=== PATIENT | female | born 1980 | race Caucasian/White ===

== ENCOUNTER 2018-12-07 03:51 | Emergency (ER) | payer OTHER ==
[~2018-12-07] VITALS: Ht 157.5 cm; Wt 88.5 kg
--- OUTSIDE RECORDS SUMMARY | 2018-12-07 03:57 | XMS REPORT ---
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 414.01 06 Apr, 2014 0 4737580338202 Problem Presence of cardiac and vascular implant and graft V45.00 08 May, 2014 0 729021710 Problem Hyperglycemia R73.9 Sep, 0 67916716 Problem Hyperlipidemia E78.5 Apr, 0 57915172 Problem Insomnia G47.00 Jan, 0 881392175 Problem Hyperlipidemia 272.4 Apr, 0 92856116 Problem Presence of cardiac and vascular implant and graft Z95.9 May, 0 874322520 Problem Dental examination V72.2 Active 31932360 Problem 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 [facility] [place] [address] Aug, Acute bronchitis J20.9 ; Low oxygen saturation R79.81 and Dyspnea R06.00 [facility] [address] [facility] [id number] [address] Jun, [facility] [id number] [address] Jun, [facility] [address] [address] May, [facility] [address] [address] May, [facility] [id number] [address] Apr, [facility] [id number] [place] [address] Apr, [facility] [address] [address] Sep, [facility] [id number] [place] [address] Sep, [facility] [id number] [place] [address] Aug, [facility] [id number] [address] Aug, [facility] [id number] [address] Jul, [facility] [address] [address] Jul, [facility] [address] [address] Jul, [facility] [address] [address] Jul, [facility] [id number] [address] Jun, [facility] [address] [address] Jun, IMMUNIZATIONS No Known Immunizations SOCIAL HISTORY Never Assessed REASON FOR VISIT EMR-[facility] PLAN OF CARE VITAL SIGNS MEDICATIONS Medication Instructions Dosage Frequency Start Date End Date Duration Status Vicodin 5-325 Mg Take 1 Tablet by Oral route every 4-6 hours as needed for pain. Jun, Active Acetaminophen by oral route Jun, Active tramadol 50 mg take 1 tablet (50 mg) by oral route every 4-6 hours as needed PRN pain Jul, Active Cambria 5-325 mg take 1 tablet by Oral route every 4-6 hours as needed for pain Jul, Active Amoxicillin 500 mg take 1 capsule by Oral route 3 times per day for 7 days until gone Jul, Active Ambien by oral route Jun, Active RESULTS No Results PROCEDURES No Known procedures INSTRUCTIONS MEDICATIONS ADMINISTERED No Known Medications MEDICAL (GENERAL) HISTORY Type Description Date Surgical History Right breast removed Surgical History 2 stints placed Hospitalization History Surgery(s)/Childbirth(s) only Hospitalization History Heart Attack
--- OUTSIDE RECORDS SUMMARY | 2018-12-07 03:57 | XMS REPORT ---
Author Author Migration, Doctor Organization [facility] Address Unknown Phone Unavailable Care Team Providers Care Puzzle Assembler Name Role Phone Migration, Doctor Unavailable Unavailable PROBLEMS Type Condition ICD9-CM Code FMH20-KT Code Onset Dates Condition Status SNOMED Code Problem Atherosclerosis of hoh coronary artery of hoh heart with stable angina pectoris 414.01 Apr, 0 [id number] Problem Presence of cardiac and vascular implant and graft V45.00 08 May, 2014 0 472300552 Problem Hyperglycemia R73.9 Sep, 0 85906169 Problem Hyperlipidemia E78.5 Apr, 0 20432853 Problem Insomnia G47.00 Jan, 0 897074852 Problem Hyperlipidemia 272.4 Apr, 0 09369288 Problem Presence of cardiac and vascular implant and graft Z95.9 May, 0 432034139 Problem Dental examination V72.2 Active 91234277 Problem Atherosclerosis of hoh coronary artery of hoh heart with stable angina pectoris I25.118 Apr, 0 Problem Tobacco use Z72.0 May, 0 869969963 Problem Hyperglycemia 790.29 Sep, 0 72251454 Problem Tobacco use 305.1 May, 0 496493299 Problem Insomnia 780.52 Jan, 0 539753612 ALLERGIES No Information ENCOUNTERS Encounter Location Date Diagnosis [address] [address] Aug, Acute bronchitis, unspecified J20.9 [facility] [address] [place] [address] Aug, Acute bronchitis J20.9 ; Low oxygen saturation R79.81 and Dyspnea R06.00 [facility] [id number] [address] Jun, [facility] [address] [address] Jun, [facility] [address], [place] [address] May, [facility] [address], [place] [address] May, [facility] [address], [place] [address] Apr, [facility] [address], [place] [address] Apr, [facility] [address], [place] [address] Sep, [facility] [address] [place] [address] Sep, [facility] [address], [place] [address] Aug, [facility] [id number] [place] [address] Aug, [facility] [address], [place] [address] Jul, [facility] [address], [place] [address] Jul, [facility] [address], [place] [address] Jul, [facility] [address], [place] [address] Jul, [facility] [address], [place] [address] Jun, [facility] [address], [place] [address] Jun, IMMUNIZATIONS No Known Immunizations SOCIAL HISTORY Never Assessed REASON FOR VISIT [place] [place] VITAL SIGNS MEDICATIONS No Known Medications RESULTS No Results PROCEDURES No Known procedures INSTRUCTIONS MEDICATIONS ADMINISTERED No Known Medications MEDICAL (GENERAL) HISTORY Type Description Date Surgical History Right breast removed Surgical History 2 stints placed Hospitalization History Surgery(s)/Childbirth(s) only Hospitalization History Heart Attack
--- OUTSIDE RECORDS SUMMARY | 2018-12-07 03:58 | XMS REPORT | Continuity of Care Document ---
Author Organization Unknown Address Unknown Allergies Active Description Code Type Severity Reaction Onset Reported/Identified Relationship to Patient Clinical Status Yes Keflex Drug Allergy N/A N/A 06/25/2013 Medications There is no data. Problems Date Dx Coded Attending Type Code Diagnosis Diagnosed By 06/25/2013 JAQUELIN HOANG DDS V72.2 DENTAL EXAMINATION 06/25/2013 JAQUELIN HOANG DDS V72.2 DENTAL EXAMINATION 07/27/2013 JAQUELIN HOANG DDS V72.2 DENTAL EXAMINATION 07/27/2013 VIKTOR RICHMOND, JAQUELIN Miles V72.2 DENTAL EXAMINATION 08/02/2013 JAQUELIN HOANG DDS V72.2 DENTAL EXAMINATION 08/17/2013 JAQUELIN HOANG DDS V72.2 DENTAL EXAMINATION Procedures Code Description Performed By Performed On D0140 LIMIT ORAL EVAL PROBLM FOCUS 06/25/2013 D0330 DENTAL PANORAMIC FILM 06/25/2013 D7140 EXTRACTION ERUPTED TOOTH/EXR 06/25/2013 D7210 REM IMP TOOTH W MUCOPER FLP 06/25/2013 D7140 EXTRACTION ERUPTED TOOTH/EXR 07/27/2013 D0099 NO CHARGE/FOLLOW UP 08/02/2013 D7140 EXTRACTION ERUPTED TOOTH/EXR 08/17/2013 Results There is no data. Encounters ACCT No. Visit Date/Time Discharge Status Pt. Type Provider Facility Loc./Unit Complaint [id number] 08/17/2013 08:47:00 08/17/2013 23:59:59 CLS Outpatient JAQUELIN HOANG DDS [id number] 07/27/2013 09:37:00 07/27/2013 23:59:59 CLS Outpatient JAQUELIN HOANG DDS
[2018-12-07] MEDS ORDERED: KETOROLAC 60 MG/2 ML VIAL IM ONE (04:15)
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
[2018-12-07 06:17] VITALS: BP 131/93
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
== END 2018-12-07 06:18 | disposition home or self-care (01) ==
LOC: ER FS 03:54
DX: S09.90XA Unspecified injury of head, initial encounter (principal); S00.83XA Contusion of other part of head, initial encounter; S63.502A Unspecified sprain of left wrist, initial encounter; I25.2 Old myocardial infarction; F17.210 Nicotine dependence, cigarettes, uncomplicated; Z85.3 Personal history of malignant neoplasm of breast; Z88.1 Allergy status to other antibiotic agents; Z91.040 Latex allergy status; Z90.12 Acquired absence of left breast and nipple; Y04.0XXA Assault by unarmed brawl or fight, initial encounter
CPT/HCPCS: 70450; 70486; 73090; 96372

== ENCOUNTER 2019-11-18 09:38 | Emergency (ER) | payer SELFPAY ==
[~2019-11-18] VITALS: Ht 157.4 cm; Wt 98.4 kg
[2019-11-18 09:45] VITALS: BP 164/89
--- NOTE | 2019-11-18 09:56 | ED Lower Extremity ---
General Chief Complaint: Lower Extremity Stated Complaint: RT LEG PAIN - FALL LAST NIGHT Source: patient History of Present Illness Date Seen by Provider: Nov 18, 2019 Time Seen by Provider: 09:41 Initial Comments 39 yo Female presenting with complaint of pain in right knee since falling last night. She states she got up too fast and her right knee buckled on her. She has been taking acetaminophen for pain. she last took a dose around 430 am. She has continued pain and it is worse with trying to bear weight. She denies hitting her head or losing consciousness. She denies problems with this knee in the past. Since it was still bothering her this am she came to the ED Allergies and Home Medications Allergies Coded Allergies: cephalexin (Verified Allergy, Severe, 12/07/18) latex (Verified Allergy, Unknown, 12/07/18) Patient Home Medication List Home Medication List Reviewed: Yes Review of Systems Constitutional: No chills, No dizziness, No fever EENTM: no symptoms reported Respiratory: short of breath (with the pain she complains of being short of breath) Cardiovascular: no symptoms reported Gastrointestinal: no symptoms reported Genitourinary: no symptoms reported Musculoskeletal: see HPI Skin: no symptoms reported Psychiatric/Neurological: Denies Numbness, Denies Paresthesia Past Wtefwzs-Vxxxiz-Lolqcy Hx Past Med/Social Hx: Reviewed Nursing Past Med/Soc Hx Patient Social History Type Used: Cigarettes 2nd Hand Smoke Exposure: Yes Recent Hopitalizations: No Past Medical History Surgeries: Yes (LEFT MASTECTOMY) Breast Respiratory: No Cardiac: Yes Heart Attack Neurological: No Genitourinary: No Gastrointestinal: No Musculoskeletal: No Endocrine: No HEENT: No Cancer: Yes Breast Psychosocial: No Blood Disorders: No Physical Exam Vital Signs Vital Signs - First Documented 11/18/19 09:45 Temp 37.0 Pulse 82 Resp 16 B/P (MAP) 164/89 (114) Pulse Ox 96 O2 Delivery Room Air Capillary Refill : Height, Weight, BMI Height: 5'2.00" Weight: 195lbs. oz. 88.069886dg; BMI Method:Stated General Appearance: WD/WN, obese Knees: right knee normal range of motion, right knee pain (with varus and valgus stress and ROM) Neurologic/Tendon: normal sensation Neurologic/Psychiatric: alert, oriented x 3 Skin: normal color, warm/dry Progress/Results/Core Measures Results/Orders My Orders Orders - ENYART,DMITRI E MD Knee 3 View Right (11/18/19 09:50) Ice: Apply To Affected Area (11/18/19 09:50) Knee Immobilizer (11/18/19 10:04) Crutches (11/18/19 10:04) Vital Signs/I&O 11/18/19 09:45 Temp 37.0 Pulse 82 Resp 16 B/P (MAP) 164/89 (114) Pulse Ox 96 O2 Delivery Room Air Progress Progress Note #1: Progress Note Obtain xrays of the right knee. Ice for pain. Progress Note #2: Time: 10:12 Progress Note No acute fracture or bony injury on xrays. Treat with knee immobilizer, crutches, ice and elevation and rest. Check with clinic and/or orthopedics if not improving Diagnostic Imaging Diagonstic Imaging: Xray Plain Films/CT/US/NM/MRI: knee Comments NAME: YOKASTA ADAMS [facility] REC#: [id number] PT STATUS: REG ER : 1980 PHYSICIAN: DMITRI WILLINGHAM MD ADMIT DATE: 11/18/19/ER FS Draft Date of Exam:11/18/19 KNEE 3 VIEW RIGHT INDICATION: Fall, right knee injury. Time of exam: 9:57 AM 3 views of the right knee were obtained. Alignment is normal. Joint spaces are well maintained. Articular surfaces are smooth. No fracture, dislocation or effusion is identified. IMPRESSION: No acute bony abnormality is detected. Dictated on workstation # [id number] Dict: 11/18/19 1006 Trans: 11/18/19 1010 SHANEL [id number] Interpreted by: YARA TRACEY MD Electronically signed by: Reviewed: Reviewed by Me Departure Impression Primary Impression: Sprain of right knee Qualified Codes: S83.91XA - Sprain of unspecified site of right knee, initial encounter Disposition: 01 HOME, SELF-CARE Condition: Stable Departure-Patient Inst. Decision time for Depature: 10:17 Referrals: YESY TRAN MD (PCP/Family) Primary Care Physician Patient Instructions: How to Use Crutches, Knee Immobilizer (DC), Knee Sprain (DC) Add. Discharge Instructions: Use knee immobilizer for support for your knee. Crutches for weight bearing as tolerated. Check with Dr. Tran or Orthopedics if not improving with your symptoms in the next 5-7 days. Ice 15-20 minutes every few hours as needed to help with pain and inflammation. Try to rest and elevate your knee when you can. All discharge instructions reviewed with patient and/or family. Voiced understanding. Scripts Ibuprofen (Ibuprofen) 800 Mg Tablet 800 MG PO Q8H PRN for PAIN for 10 Days, #30 TAB 0 Refills Prov: DMITRI WILLINGHAM MD 11/18/19 DMITRI WILLINGHAM MD Nov 18, 2019 09:56
--- OUTSIDE RECORDS SUMMARY | 2019-11-18 10:09 | XMS REPORT ---
Author Author Vanita Palm Doctor Organization [facility] Address Unknown Phone Unavailable Care Team Providers Care Boatbuilder Apprentice Wood Name Role Phone Migration, Doctor Unavailable Unavailable PROBLEMS Type Condition ICD9-CM Code [id number] Code Onset Dates Condition S tatus SNOMED Code Problem Presence of cardiac and vascular implant and graft Z95.9 08 May, 2014 Active 953239552 Problem Hyperglycemia R73.9 16 Sep, 2017 Active 803 02283 Problem Hyperlipidemia E78.5 Apr, Active 55 060418 Problem Moderate episode of recurrent major depressive disorder F33.1 Active 702226973 Problem 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 Active 311043418 Problem Insomnia G47.00 Jan, Active 2426307 01 Problem Tobacco use Z72.0 May, Active 91126 3000 Problem Atherosclerosis of [place] co ronary artery of [place] heart with stable angina pectoris I25.118 Apr, Active Problem Type 2 diabetes mellitus wit h other specified complication, without long-term current use of insulin E11.69 Active 12099188 ALLERGIES No Information ENCOUNTERS Encounter Location Date Diagnosis [address] [place] [address] Jun, [address] [place] [address] May, Tobacco use Z72.[address] [place] [address] Feb, Tobacco use Z72.[address] [place] [address] Jan, [address] [place] [address] Jan, Tobacco use Z72.0 [facility] [address] [facility] [address] [place] [address] Dec, Elbow pain, left M25.[address] [place] [address] Dec, Type 2 diabetes mellitus wit h other specified complication, without long-term current use of insulin E11.69 ; Moderate episode of recurrent major depressive disorder F33.1 ; Tobacco use Z72.0 and Acute non- recurrent maxillary sinusitis J01.[address] [place] [address] Dec, Dyspnea R06.00 ; Other hyper lipidemia E78.4 and Atherosclerotic heart disease of [place] coronary artery with unspecified angina pectoris I25.[address] [place] [address] Aug, Acute bronchitis, unspecifie d J20.9 [facility] [address] [facility] [address] [place] [address] Aug, Acute bronchitis J20.9 ; Low oxygen saturation R79.81 and Dyspnea R06.00 [facility] [address] [place] [address] Jun, [facility] [address] [address] Jun, [facility] [address] [place] [address] May, [facility] [address] [address] May, [facility] [address] [place] [address] Apr, [facility] [address] [address] Apr, [facility] [address] [place] [address] Sep, [facility] [address] [address] Sep, [facility] [id number] [place] [address] Aug, [facility] [address] [place] [address] Aug, [facility] [id number] [place] [address] Jul, [facility] [address] [place] [address] Jul, [facility] [address] [address] Jul, [facility] [address] [place] [address] Jul, [facility] [id number] [place] [address] Jun, [facility] [id number] [place] [address] Jun, IMMUNIZATIONS No Known Immunizations SOCIAL HISTORY Never Assessed REASON FOR VISIT PLAN OF CARE VITAL SIGNS MEDICATIONS Unknown Medications RESULTS No Results PROCEDURES No Known procedures INSTRUCTIONS MEDICATIONS ADMINISTERED No Known Medications MEDICAL (GENERAL) HISTORY Type Description Date Medical History Tobacco use Medical History Insomnia Medical History Hyperlipemia Medical History Hyperglycemia Medical History Presence of cardiac and vascular implant and graft Medical History Atherosclerosis of [place] co ronary artery of [place] heart with stable angina pectoris Surgical History Right breast removed Surgical History 2 stints placed Hospitalization History Surgery(s)/Childbirth(s) only Hospitalization History Heart Attack
--- OUTSIDE RECORDS SUMMARY | 2019-11-18 10:09 | XMS REPORT ---
Author Author Vanita Palm Doctor Organization [facility] Address Unknown Phone Unavailable Care Team Providers Care Emergency Operator Name Role Phone Migration, Doctor Unavailable Unavailable PROBLEMS Type Condition ICD9-CM Code [id number] Code Onset Dates Condition S tatus SNOMED Code Problem Presence of cardiac and vascular implant and graft Z95.9 08 May, 2014 Active 470494121 Problem Hyperglycemia R73.9 16 Sep, 2017 Active 803 15604 Problem Hyperlipidemia E78.5 Apr, Active 55 051911 Problem Moderate episode of recurrent major depressive disorder F33.1 Active 179645555 Problem 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 Active 841709861 Problem Insomnia G47.00 Jan, Active 5366939 01 Problem Tobacco use Z72.0 May, Active 30393 3000 Problem Atherosclerosis of [place] co ronary artery of [place] heart with stable angina pectoris I25.118 Apr, Active Problem Type 2 diabetes mellitus wit h other specified complication, without long-term current use of insulin E11.69 Active 46482209 ALLERGIES No Information ENCOUNTERS Encounter Location Date Diagnosis [facility] [address] [id number] [address] Jun, [address] [id number] [address] May, Tobacco use Z72.[address] [id number] [address] Feb, Tobacco use Z72.[address] [id number] [place] [address] Jan, [address] [id number] [place] [address] Jan, Tobacco use Z72.0 [facility] [address] [id number] [address] Dec, Elbow pain, left M25.[address] [id number] [address] Dec, Type 2 diabetes mellitus wit h other specified complication, without long-term current use of insulin E11.69 ; Moderate episode of recurrent major depressive disorder F33.1 ; Tobacco use Z72.0 and Acute non- recurrent maxillary sinusitis J01.[address] [id number] [address] Dec, Dyspnea R06.00 ; Other hyper lipidemia E78.4 and Atherosclerotic heart disease of [place] coronary artery with unspecified angina pectoris I25.[address] [id number] [address] Aug, Acute bronchitis, unspecifie d J20.9 [facility] [address] [id number] [address] Aug, Acute bronchitis J20.9 ; Low oxygen saturation R79.81 and Dyspnea R06.00 [facility] [address] [facility] [id number] [address] [place] [address] Jun, [facility] [address] [facility] [id number] [address] [place] [address] Jun, [facility] [address] [facility] [id number] [address] [place] [address] May, [facility] [address] [facility] [id number] [address] [place] [address] May, [facility] [address] [facility] [id number] [address] [place] [address] Apr, [facility] [address] [facility] [id number] [address] [place] [address] Apr, [facility] [address] [facility] [id number] [address] [place] [address] Sep, [facility] [address] [facility] [id number] [address] [place] [address] Sep, [facility] [address] [id number] [address] [place] [address] Aug, [facility] [address] [id number] [address] [place] [address] Aug, [facility] [address] [id number] [address] [place] [address] Jul, [facility] [address] [id number] [address] [place] [address] Jul, [facility] [address] [id number] [address] [place] [address] Jul, [facility] [address] [id number] [address] [place] [address] Jul, [facility] [address] [id number] [address] [place] [address] Jun, [facility] [address] [id number] [address] [place] [address] Jun, IMMUNIZATIONS No Known Immunizations SOCIAL HISTORY Never Assessed REASON FOR VISIT PLAN OF CARE VITAL SIGNS Blood pressure systolic 151 mmHg 2013-06-25 Blood pressure diastolic 86 mmHg 2013-06-25 MEDICATIONS Unknown Medications RESULTS No Results PROCEDURES Procedure Date Ordered Result Body Site SURG REMOVAL ERUPTED TOOTH Jun 25, 2013 EXTRAC ERUPTED TOOTH/EXPOSED ROOT Jun 25, 2013 PANORAMIC FILM SEE ALSO CODE 95551 Jun 25, 2013 LTD ORAL EVALUATION - PROBLEM FOCUS Jun 25, 2013 INSTRUCTIONS MEDICATIONS ADMINISTERED No Known Medications MEDICAL (GENERAL) HISTORY Type Description Date Medical History Tobacco use Medical History Insomnia Medical History Hyperlipemia Medical History Hyperglycemia Medical History Presence of cardiac and vascular implant and graft Medical History Atherosclerosis of [place] co ronary artery of [place] heart with stable angina pectoris Surgical History Right breast removed Surgical History 2 stints placed Hospitalization History Surgery(s)/Childbirth(s) only Hospitalization History Heart Attack
--- OUTSIDE RECORDS SUMMARY | 2019-11-18 10:09 | XMS REPORT ---
Author Author Vanita Palm Doctor Organization [facility] Address Unknown Phone Unavailable Care Team Providers Care Lead Portfolio Manager Name Role Phone Migration, Doctor Unavailable Unavailable PROBLEMS Type Condition ICD9-CM Code [id number] Code Onset Dates Condition S tatus SNOMED Code Problem Presence of cardiac and vascular implant and graft Z95.9 08 May, 2014 Active 524776938 Problem Hyperglycemia R73.9 16 Sep, 2017 Active 803 36190 Problem Hyperlipidemia E78.5 Apr, Active 55 946240 Problem Moderate episode of recurrent major depressive disorder F33.1 Active 998203570 Problem 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 Active 596003772 Problem Insomnia G47.00 Jan, Active 0103821 01 Problem Tobacco use Z72.0 May, Active 81938 3000 Problem Atherosclerosis of [place] co ronary artery of [place] heart with stable angina pectoris I25.118 Apr, Active Problem Type 2 diabetes mellitus wit h other specified complication, without long-term current use of insulin E11.69 Active 78226109 ALLERGIES No Information ENCOUNTERS Encounter Location Date Diagnosis [address] [place] [address] Jun, [address] [place] [address] May, Tobacco use Z72.[address] [place] [address] Feb, Tobacco use Z72.[address] [place] [address] Jan, [address] [place] [address] Jan, Tobacco use Z72.0 [facility] [address] [facility] [address] [place] [address] Dec, Elbow pain, left M25.[address] [place] [address] Dec, Type 2 diabetes mellitus wit h other specified complication, without long-term current use of insulin E11.69 ; Moderate episode of recurrent major depressive disorder F33.1 ; Tobacco use Z72.0 and Acute non- recurrent maxillary sinusitis J01.[address] [place] [address] Dec, Dyspnea R06.00 ; Other hyper lipidemia E78.4 and Atherosclerotic heart disease of [place] coronary artery with unspecified angina pectoris I25.[address] [place] [address] Aug, Acute bronchitis, unspecifie d J20.9 [facility] [address] [facility] [address] [place] [address] Aug, Acute bronchitis J20.9 ; Low oxygen saturation R79.81 and Dyspnea R06.00 [facility] [id number] [place] [address] Jun, [facility] [address] [address] Jun, [facility] [id number] [place] [address] May, [facility] [address] [address] May, [facility] [id number] [place] [address] Apr, [facility] [address] [address] Apr, [facility] [id number] [place] [address] Sep, [facility] [address] [address] Sep, [facility] [address] [facility] [place] [address] Aug, [facility] [id number] [place] [address] Aug, [facility] [id number] [place] [address] Jul, [facility] [id number] [place] [address] Jul, [facility] [id number] [place] [address] Jul, [facility] [id number] [place] [address] Jul, [facility] [id number] [place] [address] Jun, [facility] [id number] [place] [address] Jun, IMMUNIZATIONS No Known Immunizations SOCIAL HISTORY Never Assessed REASON FOR VISIT PLAN OF CARE VITAL SIGNS Blood pressure systolic 135 mmHg 2013-08-17 Blood pressure diastolic 87 mmHg 2013-08-17 MEDICATIONS Unknown Medications RESULTS No Results PROCEDURES Procedure Date Ordered Result Body Site EXTRAC ERUPTED TOOTH/EXPOSED ROOT August 17, 2013 INSTRUCTIONS MEDICATIONS ADMINISTERED No Known Medications MEDICAL (GENERAL) HISTORY Type Description Date Medical History Tobacco use Medical History Insomnia Medical History Hyperlipemia Medical History Hyperglycemia Medical History Presence of cardiac and vascular implant and graft Medical History Atherosclerosis of [place] co ronary artery of [place] heart with stable angina pectoris Surgical History Right breast removed Surgical History 2 stints placed Hospitalization History Surgery(s)/Childbirth(s) only Hospitalization History Heart Attack
--- OUTSIDE RECORDS SUMMARY | 2019-11-18 10:09 | XMS REPORT ---
Author Author Vanita Palm Doctor Organization [facility] Address Unknown Phone Unavailable Care Team Providers Care Practice Professional Name Role Phone Migration, Doctor Unavailable Unavailable PROBLEMS Type Condition ICD9-CM Code [id number] Code Onset Dates Condition S tatus SNOMED Code Problem Presence of cardiac and vascular implant and graft Z95.9 08 May, 2014 Active 023889418 Problem Hyperglycemia R73.9 16 Sep, 2017 Active 803 69033 Problem Hyperlipidemia E78.5 Apr, Active 55 185004 Problem Moderate episode of recurrent major depressive disorder F33.1 Active 130223432 Problem 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.119 Active 046053727 Problem Insomnia G47.00 Jan, Active 5687357 01 Problem Tobacco use Z72.0 May, Active 73404 3000 Problem Atherosclerosis of [place] co ronary artery of [place] heart with stable angina pectoris I25.118 Apr, Active Problem Type 2 diabetes mellitus wit h other specified complication, without long-term current use of insulin E11.69 Active 25332203 ALLERGIES No Information ENCOUNTERS Encounter Location Date Diagnosis [address] [place] [address] Jun, [address] [place] [address] May, Tobacco use Z72.[address] [place] [address] Feb, Tobacco use Z72.[address] [place] [address] Jan, [address] [place] [address] Jan, Tobacco use Z72.0 [facility] [address] [facility] [address] [place] [address] Dec, Elbow pain, left M25.[address] [place] [address] Dec, Type 2 diabetes mellitus wit h other specified complication, without long-term current use of insulin E11.69 ; Moderate episode of recurrent major depressive disorder F33.1 ; Tobacco use Z72.0 and Acute non- recurrent maxillary sinusitis J01.[address] [place] [address] Dec, Dyspnea R06.00 ; Other hyper lipidemia E78.4 and Atherosclerotic heart disease of [place] coronary artery with unspecified angina pectoris I25.[address] [place] [address] Aug, Acute bronchitis, unspecifie d J20.9 [facility] [address] [facility] [address] [place] [address] Aug, Acute bronchitis J20.9 ; Low oxygen saturation R79.81 and Dyspnea R06.00 [facility] [id number] [place] [address] Jun, [facility] [address] [address] Jun, [facility] [id number] [place] [address] May, [facility] [address] [address] May, [facility] [id number] [place] [address] Apr, [facility] [address] [address] Apr, [facility] [id number] [place] [address] Sep, [facility] [address] [address] Sep, [facility] [address] [facility] [place] [address] Aug, [facility] [id number] [place] [address] Aug, [facility] [id number] [place] [address] Jul, [facility] [id number] [place] [address] Jul, [facility] [id number] [place] [address] Jul, [facility] [id number] [place] [address] Jul, [facility] [id number] [place] [address] Jun, [facility] [id number] [place] [address] Jun, IMMUNIZATIONS No Known Immunizations SOCIAL HISTORY Never Assessed REASON FOR VISIT PLAN OF CARE VITAL SIGNS Blood pressure systolic 130 mmHg 2013-07-27 Blood pressure diastolic 85 mmHg 2013-07-27 MEDICATIONS Unknown Medications RESULTS No Results PROCEDURES Procedure Date Ordered Result Body Site EXTRAC ERUPTED TOOTH/EXPOSED ROOT Jul 27, 2013 INSTRUCTIONS MEDICATIONS ADMINISTERED No Known Medications MEDICAL (GENERAL) HISTORY Type Description Date Medical History Tobacco use Medical History Insomnia Medical History Hyperlipemia Medical History Hyperglycemia Medical History Presence of cardiac and vascular implant and graft Medical History Atherosclerosis of [place] co ronary artery of [place] heart with stable angina pectoris Surgical History Right breast removed Surgical History 2 stints placed Hospitalization History Surgery(s)/Childbirth(s) only Hospitalization History Heart Attack
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
--- NOTE | 2019-11-18 10:11 | Diagnostic Imaging Report ---
INDICATION: Fall, right knee injury. Time of exam: 9:57 AM 3 views of the right knee were obtained. Alignment is normal. Joint spaces are well maintained. Articular surfaces are smooth. No fracture, dislocation or effusion is identified. IMPRESSION: No acute bony abnormality is detected. Dictated by: Dictated on workstation # [id number]
[2019-11-18] MEDS ORDERED: IBUP-1780 PO (10:17)
== END 2019-11-18 10:24 | disposition home or self-care (01) ==
LOC: EDUNIT# 09:38 → ER FS 09:39
DX: S83.91XA Sprain of unspecified site of right knee, initial encounter (principal); I25.2 Old myocardial infarction; Z85.3 Personal history of malignant neoplasm of breast; Z91.040 Latex allergy status; Z77.22 Contact with and (suspected) exposure to environmental tobacco smoke (acute) (chronic); Z88.1 Allergy status to other antibiotic agents; X50.1XXA Overexertion from prolonged static or awkward postures, initial encounter; W19.XXXA Unspecified fall, initial encounter
CPT/HCPCS: 73562; 99283; L1830

== ENCOUNTER → 2020-01-29 | Outpatient (CLI) | payer SELFPAY ==
[~2020-01-29] MED LIST: IBUP-1780 PO
--- NOTE | 2020-01-29 15:06 | Diagnostic Imaging Report ---
EXAMINATION: Magnetic resonance imaging of the right knee without intravenous contrast. DATE: January 29, 2020. COMPARISON: Right knee radiographs November 18, 2019. INDICATION: 39-year-old female, knee pain. TECHNIQUE: Multiplanar, multisequence non contrast enhanced MR imaging was accomplished. FINDINGS: MENISCI: There is a vertically oriented tear involving the posterior horn of the medial meniscus near the meniscocapsular junction. There is an oblique tear involving the posterior horn of the lateral meniscus near the base of the inferior popliteal meniscal fascicle, best illustrated on sagittal PD fat saturation sequence image 18. There is suspicion of additional vertically oriented tearing of the posterior horn of the lateral meniscus as well. LIGAMENTS AND TENDONS: The anterior cruciate ligament is completely torn. The posterior cruciate ligament is intact. The medial collateral ligament is intact. The iliotibial band, mid third lateral capsular ligament, fibular collateral ligament, biceps femoris tendon, and conjoined tendon are intact. The quadriceps tendon and patella ligament are intact. JOINT: There is fissuring of the cartilage of the medial patellar facet, best illustrated on axial T2 fat saturation sequence image 8. There is increased signal in the cartilage of the medial aspect of the lateral patellar facet without identified surface defect which may correlate with an area of chondromalacia. The medial and lateral compartment cartilage is grossly intact. There is a moderate sized knee joint effusion without identified intra-articular body or prominent synovitis. BONE: There is unremarkable bone marrow signal. Specifically, negative for fracture, osteomyelitis, osteonecrosis, or marrow replacing process. BURSAE AND SOFT TISSUES: There is no Carlton's cyst. There is mild nonspecific anterior subcutaneous edema. There is low level edema in the extensor digitorum longus muscle. IMPRESSION: 1. Complete tear of the anterior cruciate ligament. Intact posterior cruciate ligament. 2. Tears involving the posterior horns of the medial and lateral meniscus as detailed above. 3. No acute fracture or bone contusion. 4. Fissuring of the cartilage of the medial patellar facet. Moderate sized knee joint effusion without identified intra-articular body or prominent synovitis. 5. Low level edema in the extensor digitorum longus muscle which potentially may reflect a low-grade muscle strain. Dictated by: Dictated on workstation # [id number]
== END ==
LOC: RAD 13:04
PROVIDERS: ATTEND Nurse Practitioner
DX: S83.261A Peripheral tear of lateral meniscus, current injury, right knee, initial encounter (principal); S83.241A Other tear of medial meniscus, current injury, right knee, initial encounter; M25.461 Effusion, right knee; X58.XXXA Exposure to other specified factors, initial encounter
CPT/HCPCS: 73721